=== PATIENT | male | born 1960 | race Caucasian/White ===

== ENCOUNTER → 2018-06-25 | Outpatient (CLI) | payer OTHER ==
--- NOTE | 2018-06-25 15:46 | PCVCIMAG ---
APPROVED REPORT Study performed: 06/25/2018 10:16:00 Exam: Stress Echocardiogram Indication: Hyperlipidemia, Hypertension Patient Location: Echo lab Stress Nurse: Amie Kirk RN Status: routine Ht: 5 ft 9 in HR: 71 bpm BP: 150/90 mmHg Rhythm: NSR Medical History Medical History: HTN, Hyperlipidemia Procedure The patient underwent an Exercise Stress Test using the Pipe Protocol. Blood pressure, heart rate, and EKG were monitored. An Echocardiogram was performed by termite control technician in four stages in quad fashion. At peak stress, four selected images were obtained and placed side by side with resting images for comparison. Stress Test Details Stress Test: Exercise stress testing was performed using a Pipe protocol. HR Resting HR: 71 bpmMax Heart Rate (APMHR): 160 bpm Max HR Achieved: 171 bpmTarget HR (85% APMHR): 136 bpm % of APMHR: 106 Recovery HR: 109 bpm HR response to stress: Normal HR response to stress BP Resting BP: 150/90 mmHg Max BP: 200/90 mmHg Recovery BP: 160/74 mmHg BP response to stress: Normal blood pressure response to stress. ECG Resting ECG: Sinus Rhythm Stress ECG: Sinus Rhythm ST Change: Eqivocally ischemic Recovery ECG: Sinus Rhythm Clinical Reason for Termination: Maximal effort Exercise duration: 7 min 08 sec Highest Stage Achieved: Stage 3: 3.4 mph at 14% grade. Exercise capacity: 10.10 METs Overall Exercise Capacity for Age: Poor Pre-Stress Echo The resting Echocardiogram showed normal left ventricular contractility with an estimated Ejection Fraction of about 55-60%. Post-Stress Echo The stress Echocardiogram showed normal left ventricular contractility with an estimated Ejection Fraction of about 60-65%. Mild hypokinesis mid inferior and mid apical. Conclusion Clinical Response: Ischemic Exercise Capacity: Average Stress ECG Response: Equivocal Stress Echo Images: Equivocal Ascending dilated at 4.1cm. Other Information Study Quality: Good <Conclusion> Ascending dilated at 4.1cm.
--- NOTE | 2018-06-25 16:41 | PCVCIMAG ---
APPROVED REPORT Imaging Protocol: Rest Tc-99m/Stress Tc-99m 1 day Study performed: 06/25/2018 13:38:06 Indication: Abnormal EKG, Chest pain, Abn Stress Echo Patient Location: Out-Patient Stress Nurse: Shira Miguel RN, Amie Kirk RN RI Tech:RENÉ BellMT Ht: 5 ft 9 in Wt: 179 lbs BSA: 1.97 m2 HR: 98 bpm BP: 162/88 mmHg BMI: 26.4 Rhythm: Sinus Rhythm Medical History Medical History: HTN, Hyperlipidemia, Current Tobacco use - Chew Medications: ASA, Atorvastation, Diovan Allergies: Sulfa Cardiac Risk Factors: Age, FHX of CAD Pretest Chest Pain Characteristics: No chest pain Exercise History: Indeterminate Resting Data Rest SPECT myocardial perfusion imaging was performed in supine position 45 minutes following the intravenous injection of 10 mCi of Tc-99m Sestamibi. Time of rest injection: 1300 Date: 06/25/2018 Administration Route: IV Administration Site: Right AC Exercise Stress At peak stress, the patient was injected intravenously with 32.3mCi of Tc-99m Sestamibi. Time of stress injection: 1430 Date: 06/25/2018 Administration Route: IV Administration Site: Right AC Patient continued to exercise for 1 minute(s). Gated Stress SPECT was performed 30 minutes after stress injection. The images were gated to evaluate regional wall motion and calculate left ventricular ejection fraction. Stress Test Details Stress Test: Exercise stress testing was performed using a Pipe protocol. HRMax Heart Rate (APMHR): 160 bpm Resting HR: 98 bpmTarget HR (85% APMHR): 136 bpm Max HR Achieved: 162 bpm % of APMHR: 101 Recovery HR: 104 bpm HR response to stress: Accelerated HR response to stress BP Resting BP: 162/88 mmHg Max BP: 195/94 mmHg Recovery BP: 194/94 mmHg BP response to stress: Normal blood pressure response to stress. ECG Resting ECG: Sinus Rhythm Stress ECG: Sinus Tachycardia, ST Wave Abn ST Change: Downsloping ST depression Maximum ST Deviation: 2 mm Arrhythmia: None Recovery ECG: Sinus Tachycardia, ST Wave Abn Recovery ST Change: Downsloping ST depression Recovery ST Deviation: 0.8 mm Recovery Arrhythmia: None Clinical Reason for Termination: Fatigue Stress Symptoms: Leg Fatigue Exercise duration: 6 min 31 sec Exercise capacity: 7.0 METs Overall Exercise Capacity for Age: Poor Scale: Sedentary Angina Score: Non-Limiting Symptoms resolved during recovery. Stress ECG Conclusion equivical Villanueva Treadmill Score is -8.0 which is Moderate risk. Study Quality Study: Good Study Data Post stress, the left ventricular ejection was 69%.. SSS: 0 SRS: 0 SDS: 0 TID = 0.97. Perfusion No evidence of stress induced ischemia or prior myocardial infarction. Wall Motion Normal left ventricular size and function with no regional wall motion abnormalities. Nuclear Conclusion No evidence of stress induced ischemia or prior myocardial infarction. Normal left ventricular size and function with no regional wall motion abnormalities. Post stress, the left ventricular ejection was 69%. No prior study available for comparison. Interpreted by: Ayaan Stevens MD Electronically Approved: 06/25/2018 16:33:52 <Conclusion> equivical
== END | disposition home or self-care (01) ==
LOC: PCVCIMAG 13:14
PROVIDERS: ATTEND Family Medicine
DX: R07.9 Chest pain, unspecified (principal); R94.39 Abnormal result of other cardiovascular function study; I10 Essential (primary) hypertension; E78.2 Mixed hyperlipidemia; Z68.25 Body mass index [BMI] 25.0-25.9, adult; Z82.49 Family history of ischemic heart disease and other diseases of the circulatory system; Z72.0 Tobacco use
CPT/HCPCS: 78452; 93017; 93325; 93351; A9500